=== PATIENT | male | born 1955 ===

== ENCOUNTER 2022-10-21 01:23 | Emergency (ER) | payer OTHER ==
[2022-10-21] VITALS (21 sets, daily range): BP systolic 83–116; BP diastolic 44–62
[~2022-10-21] VITALS: Ht 180.3 cm; Wt 81.6 kg
[2022-10-21 02:14] LABS: BASO% 0.3 % (0-3); HEMOGLOBIN 13.5 g/dl (14.0-18.0); IMMATURE GRANULOCYTES 0.1 % (0.0-5.0); LYMPH% 14.5 % (15-41); MEAN CELL VOLUME 90.9 fL CALC (80.0-100.0); MEAN CORPUSCULAR HGB 29.2 pG CALC (26.0-32.0); MEAN CORPUSCULAR HGB CONC 32.1 g/dL CAL (32.0-36.0); MONO% 6.9 % (2-13); NEUT# 5.9 thou/uL (1.82-7.42); NEUT% 78.2 % (42-76); RED BLOOD COUNT 4.62 mill/uL (4.70-6.10); RED CELL DISTRI WIDTH 12.6 % (11.5-15.5)
[2022-10-21 02:15] LABS: URINE BILIRUBIN - DIPSTICK NEGATIVE (NEGATIVE); URINE BLOOD DIPSTICK TRACE-INTACT (NEGATIVE); URINE COLOR YELLOW; URINE GLUCOSE - DIPSTICK >=1000 mg/dL (NEGATIVE); URINE KETONE >=80 mg/dL (NEGATIVE); URINE LEUK ESTERASE NEGATIVE (NEGATIVE); URINE PH 5.5 (4.5-8.0); URINE PROTEIN - DIPSTICK NEGATIVE (NEG-TRACE); URINE SPECIFIC GRAVITY 1.015; URINE UROBILINOGEN - DIPSTICK 0.2 E.U./dL (0.2)
[2022-10-21 02:19] LABS: URINE NITRITE - DIPSTICK NEGATIVE (Negative)
[2022-10-21 02:28] LABS: ALBUMIN 4.9 g/dL (3.2-5.0); ALKALINE PHOSPHATASE 93 u/l (38-126); BILIRUBIN, TOTAL 0.6 mg/dL (0.2-1.3); BUN 49 mg/dL (8-23); BUN/CREATININE RATIO 21 (12-20 (CALC)); CHLORIDE 103 mmol/l (95-108); CREATININE 2.3 mg/dL (0.7-1.3); GFR FOR AFR.AMER. 34 ML/MIN (>=60 (CALC)); GFR OTHER RACES 28 ML/MIN (>=60 (CALC)); SGOT/AST 39 u/l (19-48); SODIUM 141 mmol/l (137-146); TOTAL PROTEIN 7.6 g/dL (6.3-8.2)
[2022-10-21 02:39] LABS: ANION GAP 25 (6-22 (CALC)); CARBON DIOXIDE 18 mmol/l (22-30)
== END 2022-10-21 05:10 | disposition designated cancer center or children's hospital (05) | DRG 639 ==
LOC: ED 01:23
PROVIDERS: Emergency Medicine
DX: E11.65 Type 2 diabetes mellitus with hyperglycemia (principal); N19 Unspecified kidney failure; I10 Essential (primary) hypertension